=== PATIENT | female | born 1945 | race Caucasian/White ===

== ENCOUNTER → 2017-02-28 | Outpatient (CLI) | payer MEDICARE ==
[~2017-02-28] MED LIST: ASCO500T8 PO; ERGO400T2 PO; MOME13HF2 INH; OMEP-110 PO; POTA10TA PO; PROG100C4 PO; SODI1PAC12 NS; TRIA10.8 SL; allergy drops SL
== END | disposition home or self-care (01) ==
LOC: STAR 12:53
PROVIDERS: ATTEND Orthopaedic Surgery
DX: Z01.818 Encounter for other preprocedural examination (principal); M17.11 Unilateral primary osteoarthritis, right knee
CPT/HCPCS: 87081; 93005

== ENCOUNTER → 2017-07-30 | Outpatient (CLI) | payer MEDICARE ==
[~2017-07-30] MED LIST changes: +FENTANYL PF 100 MCG/2ML ONE; +MIDAZOLAM 1 MG/ML, 5ML ONE; +PROG100C16 PO; -PROG100C4 PO
== END | disposition home or self-care (01) ==
LOC: RAD 07:22
PROVIDERS: ATTEND Physical Medicine & Rehabilitation
DX: M47.816 Spondylosis without myelopathy or radiculopathy, lumbar region (principal)
CPT/HCPCS: 72148; 99156; 99157; J2250; J3010